=== PATIENT | female | born 2000 | race Caucasian/White ===

== ENCOUNTER 2019-09-12 21:34 | Emergency (ER) | payer OTHER, SELFPAY ==
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
[2019-09-12 21:30] VITALS: BP 123/89; PULSE 68; RESP 16; TEMP 36.4; O2SAT 97; BMI 27.3
--- NOTE | 2019-09-12 21:30 | ED_ITS ---
Entered by Trina Nickerson, acting as scribe for Brandon Bautista DO HPI - Syncope General: Chief Complaint: Syncope Stated Complaint: PASSING OUT Time Seen by Provider: 09/12/19 21:30 Source: patient Mode of arrival: EMS Limitations: no limitations History of Present Illness: HPI narrative: 19 yo Female presents to ED with complaint of syncope. Pt states that she stood up and her vision tunneled and her hearing went out. Pt states that she was having ringing in her ears. Pt states that she went into the bathroom and passed out. Pt states that she just got out of the hospital today from an MS flair up. Pt is currently on Cipro for a UTI. Pt's mom states that the patient was unconscious for about 45 seconds. MD complaint: loss of consciousness Onset (ago): hour(s) (Just prior to arrival) Duration of episode: 45 -: second(s) Witnessed: Yes - by Bystander Context: standing up Injuries sustained associated with event: none Review of Systems General: Reports: 10 or more systems reviewed and unremarkable except in HPI and below Eyes: Reports: change in vision (vision tunneled during episode) ENMT: Reports: Change in hearing (ears ringing during episode) Card: Reports: syncope PFS ED PFSH: Statuses (acute, chronic, etc) shown below reflect problem list status as previously entered and may not be historically accurate Medical History (Updated 09/12/19 @ 21:48 by Trina Nickerson) Multiple sclerosis (Acute) Social History Smoking and tobacco status: never smoked Physical Exam Const: COMMON NORMALS: no apparent distress, average body habitus, oriented x3, no limitations, healthy appearing, alert and well nourished HENMT: COMMON NORMALS: normocephalic, head/scalp atraumatic, hearing grossly normal bilaterally, external ears normal, EAC's normal, TM's normal bilaterally, external nose normal, nasal mucous membranes and turbinates normal, oropharynx normal, dentition normal and gingiva normal; oral mucous membranes not moist HEAD & SCALP: normocephalic and atraumatic NOSE: external nose normal and nasal mucous membranes and turbinates normal EXTERNAL EAR: Yes external ears normal EXTERNAL AUDITORY CANAL: EAC's normal TYMPANIC MEMBRANE: TM's normal bilaterally MOUTH: moist mucous membranes abnormal Eye: COMMON NORMALS: PERRL, EOMs intact bilaterally, conjunctivae normal, no scleral icterus, no papilledema, normal visual peña by confrontation and fundi normal bilaterally CONJUNCTIVA: Yes conjunctivae normal PUPIL: Yes PERRL DIRECT OPHTHALMOSCOPY: Yes no papilledema and Yes fundi normal bilaterally Neck/C-Spine: COMMON NORMALS: full ROM, no lymphadenopathy, supple, no meningeal signs, no JVD, thyroid normal and no carotid bruits THYROID: thyroid normal Chest: COMMONS NORMALS: inspection of chest normal and palpation of chest normal Resp: COMMON NORMALS: normal respiratory effort, no retractions, no use of accessory muscles, clear to auscultation bilaterally and percussion normal AUSCULTATION: clear to auscultation bilaterally PERCUSSION: percussion normal Cardio: COMMON NORMALS: no JVD, regular rate, regular rhythm, S1 normal heart sound, S2 normal heart sound, no gallops, no clicks, no murmurs, no rub and peripheral pulses 2+ throughout RATE: regular rate RHYTHM: regular rhythm HEART SOUNDS: S1 normal and S2 normal PERIPHERAL PULSES: pulses 2+ throughout GI: COMMON NORMALS: normal to inspection, nondistended, normoactive bowel sounds, soft to palpation, non-tender, no hepatosplenomegaly, no masses and no bruits PALPATION: Yes soft and Yes no hepatosplenomegaly : COMMON NORMALS: Yes no CVA tenderness and Yes external appearance normal BLADDER/KIDNEY EXAM: Yes no CVA tenderness Back/Pelvis: COMMON NORMALS: no CVA tenderness, thoracic and lumbar spine normal to inspection, no thoracic nor lumbar tenderness, thoraco-lumbar ROM normal and straight leg raise negative bilaterally Extremity: COMMON NORMALS: normal to inspection, full ROM, normal capillary refill, no joint enlargement, no clubbing, cyanosis or edema, no calf tenderness and no pedal edema Neuro: COMMON NORMALS: oriented x3 SENSORIUM/ORIENTATION: Yes alert MENINGEAL SIGNS: Yes no meningeal signs Skin: COMMON NORMALS: no rashes or lesions noted, no wounds, skin turgor normal, no jaundice, no petechiae and no mottling GENERAL SKIN EXAM: no rashes or lesions noted and turgor normal Course Vital Signs: Vital signs: Vital Signs Temperature 97.6 F 09/12/19 21:30 Pulse Rate 66 09/12/19 21:55 Respiratory Rate 14 09/12/19 21:55 Blood Pressure 107/59 09/12/19 21:55 Pulse Oximetry 98 09/12/19 21:55 MDM - Syncope Lab Data: Labs: Lab Results 09/12/19 09/12/19 09/12/19 Range/Units 22:03 22:03 22:03 WBC 11.4 H (4.0-10.0) 10^3/ uL RBC 4.38 (4.1-5.3) 10^6/u L Hgb 9.2 L (11.5-15.3) g/dL Hct 32.0 L (37.0-47.0) % MCV 73.1 L (81-99) fL MCH 21.0 L (28.0-34.0) pg MCHC 28.8 L (30.0-36.0) g/dL RDW 16.7 H (12.1-15.1) % Plt Count 375 (130-400) 10^3/c mm MPV 9.1 (7.4-10.4) fL Neut % (Auto) 63.8 % Lymph % (Auto) 25.7 % Person % (Auto) 8.8 % Eos % (Auto) 0.8 % Baso % (Auto) 0.1 % Neut # (Auto) 7.3 (1.8-7.7) 10^3/u L Lymph # (Auto) 2.9 (0.8-4.8) 10^3/u L Person # (Auto) 1.0 H (0.2-0.9) 10^3/u L Eos # (Auto) 0.1 (0.0-0.8) 10^3/u L Baso # (Auto) 0.0 (0.0-0.1) 10^3/u L Nucleated RBC % (a uto) 0 % Nucleated RBCs # 0.0 /100WBC Sodium 135 L (136-145) mmol/L Potassium 3.0 L (3.5-5.1) mmol/L Chloride 104 (98-107) mmol/L Carbon Dioxide 24 (22-29) mmol/L Anion Gap 10.0 (5-19) BUN 19 (6-20) mg/dL Creatinine 0.9 (0.5-0.9) mg/dL GFR Calculation 79.0 L (90-130) mL/min Glucose 115 H (74-109) mg/dL Calcium 8.7 (8.6-10.0) mg/Dl Total Bilirubin 0.2 (0.15-1.2) mg/dL AST 9 (0-32) U/L ALT 6 (0-33) U/L Alkaline Phosphata se 43 (35-105) IU/L Total Protein 5.7 L (6.6-8.7) g/dL Albumin 4.2 (3.5-5.2) g/dL Globulin 1.5 (1.3-4.6) g/dL HCG, Qual Negative (Negative) Discharge Plan Discharge Prescriptions: No Action acetaminophen 325 mg Tablet 650 mg PO QID PRN (Reason: Pain) RF: 0 gabapentin 400 mg Capsule 400 mg PO TID RF: 0 docusate sodium 50 mg Capsule 50 mg PO BID RF: 0 ciprofloxacin HCl 500 mg Tablet 500 mg PO BID RF: 0 teriflunomide 14 mg Tablet 14 mg PO DAILY RF: 0 Coding Level of Care Code ED Warehouse Order Puller for Chg Fwd Exam Problem Focused The documentation recorded by the Krishan hernandez Carmen, accurately reflects the service I personally performed and the decisions made by , Brandon Bautista, DO Sep 12, 2019 21:34
--- NOTE | 2019-09-12 21:37 | XRR_ITS ---
PROCEDURE INFORMATION: Exam: XR Chest, 1 View Exam date and time: 09/12/2019 10:17 PM Age: 19 years old Clinical indication: Other: Syncope TECHNIQUE: Imaging protocol: XR of the chest Views: 1 view. COMPARISON: CR Chest 2 views* [id number] 05/19/2018 2:37 PM FINDINGS: Lungs: Unremarkable. No consolidation. Pleural space: Unremarkable. No pleural effusion. No pneumothorax. Heart/Mediastinum: Unremarkable. No cardiomegaly. Bones/joints: Unremarkable. XR/XR chest 1V portable [id number] IMPRESSION: No acute findings.
[2019-09-12 21:55] VITALS: BP 107/59; PULSE 66; RESP 14; O2SAT 98
[2019-09-12 22:12] LABS: Basophils % 0.1 %; Eosinophils # 0.1 10^3/uL (0.0-0.8); Eosinophils % 0.8 %; Hemoglobin 9.2 g/dL (11.5-15.3); Lymphocytes # 2.9 10^3/uL (0.8-4.8); Lymphocytes % 25.7 %; Mean Corpuscular HGB Conc 28.8 g/dL (30.0-36.0); Mean Corpuscular Volume 73.1 fL (81-99); Mean Platelet Volume 9.1 fL (7.4-10.4); Monocytes % 8.8 %; Neutrophils # 7.3 10^3/uL (1.8-7.7); Neutrophils % 63.8 %; Nucleated Red Blood Cells % 0 %; Platelet Count 375 10^3/cmm (130-400); Red Blood Count 4.38 10^6/uL (4.1-5.3); Red Cell Distribution Width 16.7 % (12.1-15.1); White Blood Count 11.4 10^3/uL (4.0-10.0)
[2019-09-12 22:24] LABS: Alanine Aminotransferase 6 U/L (0-33); Albumin Level 4.2 g/dL (3.5-5.2); Alkaline Phosphatase 43 IU/L (35-105); Aspartate Amino Transferase 9 U/L (0-32); Blood Urea Nitrogen 19 mg/dL (6-20); Calcium 8.7 mg/Dl (8.6-10.0); Carbon Dioxide 24 mmol/L (22-29); Chloride 104 mmol/L (98-107); Globulin 1.5 g/dL (1.3-4.6); Glucose 115 mg/dL (74-109); Sodium 135 mmol/L (136-145); Total Bilirubin 0.2 mg/dL (0.15-1.2); Total Protein 5.7 g/dL (6.6-8.7)
[2019-09-12 22:25] LABS: HCG, Serum Qual Negative (Negative)
[2019-09-12 22:51] VITALS: BP 121/63; PULSE 68; RESP 16; O2SAT 99
[2019-09-12 23:13] VITALS: BP 115/64; PULSE 65; RESP 16; O2SAT 97
== END 2019-09-12 23:18 | disposition home or self-care (01) ==
PROVIDERS: Emergency Provider Family Medicine; Family Provider Registered Nurse
DX: R55 Syncope and collapse (principal); G35 Multiple sclerosis
CPT/HCPCS: 71045; 80053; 84703; 85025; 99281

== ENCOUNTER → 2019-10-17 14:16 | Outpatient (BNVA) | payer OTHER, SELFPAY | PROVIDERS: Family Provider Registered Nurse; PCP Registered Nurse; Visit Provider Nurse Practitioner Family | DX: J02.9 Acute pharyngitis, unspecified (principal) | CPT/HCPCS: 87880 ==

== ENCOUNTER → 2021-02-13 08:12 | Outpatient (BNVA) | payer OTHER, SELFPAY | PROVIDERS: Family Provider Registered Nurse; PCP Registered Nurse; Visit Provider Family Medicine | DX: J02.9 Acute pharyngitis, unspecified (principal) | CPT/HCPCS: 87880 ==

== ENCOUNTER → 2021-05-31 12:13 | Outpatient (BNVA) | payer OTHER, SELFPAY | PROVIDERS: Family Provider Registered Nurse; PCP Registered Nurse; Visit Provider Nurse Practitioner Family | DX: Z20.822 Contact with and (suspected) exposure to COVID-19 (principal) | CPT/HCPCS: 87426; 87635 ==

== ENCOUNTER → 2021-06-02 13:28 | Outpatient (BNVA) | payer OTHER, SELFPAY | PROVIDERS: Family Provider Registered Nurse; PCP Registered Nurse; Visit Provider Nurse Practitioner | DX: R39.9 Unspecified symptoms and signs involving the genitourinary system (principal); N39.0 Urinary tract infection, site not specified; R31.9 Hematuria, unspecified | CPT/HCPCS: 81000 ==

== ENCOUNTER → 2022-11-25 15:54 | Outpatient (BNVA) | payer OTHER, SELFPAY | PROVIDERS: Family Provider Registered Nurse; PCP Registered Nurse; Visit Provider Nurse Practitioner Family | DX: M25.571 Pain in right ankle and joints of right foot (principal) | CPT/HCPCS: 73610 ==